=== PATIENT | female | born 1990 | race Hispanic/Latino ===

== ENCOUNTER 2022-08-30 18:18 | Emergency (ER) | payer BC ==
[2022-08-30 18:59] LABS: Absolute Lymphocytes (CBC) 0.4 K/uL (0.7-4.9); Hematocrit 38.8 % (36.0-45.0); Lymphocytes % 7.3 % (15.3-44.8); MCV 89.5 fL (80-100); MPV 10.4 fL (7.6-11.3); RBC Red Blood Cell Count 4.34 M/uL (3.86-4.86)
[2022-08-30 19:15] LABS: Albumin 4.1 g/dL (3.4-5.0); Bilirubin Direct 0.1 mg/dL (0-0.2); Bilirubin Total 0.4 mg/dL (0.2-1.0); Magnesium 2.1 mg/dL (1.8-2.4); Potassium 3.5 mmol/L (3.5-5.1); Protein, Total 8.2 g/dL (6.4-8.2); Troponin High Sensitivity 5.1 pg/mL (<58.9)
--- NOTE | 2022-08-30 19:34 | RAD REPORT ---
EXAM DESCRIPTION: Ant Single View08/30/2022 7:17 pm CLINICAL HISTORY: Syncope COMPARISON: 2007 FINDINGS: The lungs appear clear of acute infiltrate. The heart is normal size IMPRESSION: No acute abnormalities displayed
--- NOTE | 2022-08-30 19:36 | RAD REPORT ---
EXAM DESCRIPTION: CT - Head Brain Wo Cont - 08/30/2022 7:29 pm CLINICAL HISTORY: Syncope COMPARISON: 2013 TECHNIQUE: Computed axial tomography of the head was obtained. IV contrast was not requested. All CT scans are performed using dose optimization technique as appropriate and may include automated exposure control or mA/KV adjustment according to patient size. FINDINGS: An intracranial bleed is not seen . The ventricles are normal in caliber. No significant hypodense areas within the brain visualized No extra-axial fluid collection is noted. Fluid within the sinuses/ mastoids is not seen. IMPRESSION: No acute intracranial abnormality is seen. If patient's symptoms persist MRI of the bra in would be recommended.
[2022-08-30] MEDS ORDERED: OSELTAMIVIR 75 MG CAP ONE (19:52)
[2022-08-30] MEDS ORDERED: NA CHLORIDE 0.9% 1,000 ML ONE (19:52)
--- NOTE | 2022-08-30 19:53 | EDPHYS ---
Physician Documentation [facility] Name: Kerline Arenas Age: 31 yrs Sex: Female : 1990 Arrival Date: 08/30/2022 Time: 18:20 Bed 6 Private MD: ED Physician Hayder Quezada HPI: 08/30 18:32 This 31 yrs old Female presents to ER via Unassigned with complaints of ms3 syncope, cough, headache. 18:32 The patient has experienced syncope, lost consciousness. Onset: The symptoms/episode ms3 began/occurred today. Duration: This was a single episode, that lasted an unknown period of time. Context: occurred at work. Associated injury: The patient did not suffer any apparent associated injury. Associated signs and symptoms: Pertinent positives: cough, headache. Current symptoms: Currently, the patient is not experiencing any symptoms, the patient feels back to baseline, no decreased level of consciousness, no confusion, no dysphasia, no paralysis, no visual changes. 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 - Social history:: Smoking status: Patient denies any tobacco usage or history of. ROS: 18:32 Constitutional: Negative for fever, and chills. Eyes: Negative for injury, pain, ms3 redness, and discharge, Neck: Negative for injury, pain, and swelling, Cardiovascular: Negative for chest pain, and palpitations. Respiratory: Negative for shortness of breath, cough, wheezing, and pleuritic chest pain, Abdomen/GI: Negative for abdominal pain, nausea, vomiting, diarrhea, and constipation, MS/Extremity: Negative for injury and deformity, Skin: Negative for injury, rash, and discoloration. 18:32 Neuro: Positive for headache. 18:32 All other systems are negative. Exam: 18:32 Constitutional: This is a well developed, well nourished patient who is awake, alert, ms3 and in no acute distress. Head/Face: Normocephalic, atraumatic. Neck: Trachea midline, no cervical lymphadenopathy. Supple, full range of motion without nuchal rigidity, or vertebral point tenderness. No Meningismus. Chest/axilla: Normal chest wall appearance and motion. Nontender with no deformity. Cardiovascular: Regular rate and rhythm with a normal S1 and S2. No gallops, murmurs, or rubs. Normal PMI, no JVD. No pulse deficits. Respiratory: Lungs have equal breath sounds bilaterally, clear to auscultation and percussion. No rales, rhonchi or wheezes noted. No increased work of breathing, no retractions or nasal flaring. Abdomen/GI: Soft, non-tender, with normal bowel sounds. No distension or tympany. No guarding or rebound. No evidence of tenderness throughout. Back: No spinal tenderness. No costovertebral tenderness. Full range of motion. Skin: Warm, dry with normal turgor. Normal color with no rashes, no lesions, and no evidence of cellulitis. MS/ Extremity: Pulses equal, no cyanosis. Neurovascular intact. Full, normal range of motion. Neuro: Awake and alert, GCS 15, oriented to person, place, time, and situation. Cranial nerves II-XII grossly intact. Motor strength 5/5 in all extremities. Sensory grossly intact. Cerebellar exam normal. Normal gait. Vital Signs: 18:36 BP 115 / 72; Pulse 115; Resp 16; Temp 97.6; Pulse Ox 100% on R/A; iw MDM: 18:30 Patient medically screened. ms3 18:32 Differential Diagnosis: cardiac arrhythmia, seizure, vasovagal episode. ms3 18:56 Transition of care: After a detail discussion of the patient's case, care is ms3 transferred to Hayder Quezada MD. 19:52 Data reviewed: vital signs, nurses notes, lab test result(s), radiologic studies, CT rn scan, plain films, and as a result, I will discharge patient. Counseling: I had a detailed discussion with the patient and/or guardian regarding: the historical points, exam findings, and any diagnostic results supporting the discharge/admit diagnosis, lab results, radiology results, the need for outpatient follow up, to return to the emergency department if symptoms worsen or persist or if there are any questions or concerns that arise at home. Response to treatment: the patient's symptoms have markedly improved after treatment, and as a result, I will discharge patient. Special discussion: I discussed with the patient/guardian in detail that at this point there is no indication for admission to the hospital. It is understood, however, that if the symptoms persist or worsen the patient needs to return immediately for re-evaluation. 08/30 18:32 Order name: Basic Metabolic Panel; Complete Time: 19:25 ms3 08/30 18:32 Order name: CBC with Diff; Complete Time: 19:25 ms3 08/30 18:32 Order name: Hepatic Function; Complete Time: 19:25 ms3 08/30 18:32 Order name: Magnesium; Complete Time: 19:25 ms3 08/30 18:32 Order name: Troponin High Sensitivity; Complete Time: 19:25 ms3 08/30 18:36 Order name: Flu; Complete Time: 19:25 ms3 08/30 18:32 Order name: CT Head Brain wo Cont; Complete Time: 19:47 ms3 08/30 18:32 Order name: EKG; Complete Time: 18:33 ms3 08/30 18:32 Order name: CXR XRAY; Complete Time: 19:47 ms3 08/30 18:36 Order name: COVID-19 SARS RT PCR (Document "Date of Onset" if Symptomatic); Complete ms3 Time: 19:25 08/30 21:12 Order name: Urine --Ancillary (enter results) vc1 08/30 21:14 Order name: Urine Dipstick-Ancillary EDMS 08/30 18:32 Order name: Cardiac monitoring; Complete Time: 18:50 ms3 08/30 18:32 Order name: EKG - Nurse/Tech; Complete Time: 19:42 ms3 08/30 18:32 Order name: IV Saline Lock; Complete Time: 18:50 ms3 08/30 18:32 Order name: Labs collected and sent; Complete Time: 18:50 ms3 08/30 18:32 Order name: NPO; Complete Time: 18:35 ms3 08/30 18:32 Order name: O2 Per Protocol; Complete Time: 18:50 ms3 08/30 18:32 Order name: O2 Sat Monitoring; Complete Time: 18:35 ms3 08/30 18:32 Order name: Urine Dipstick-Ancillary (obtain specimen); Complete Time: 21:33 ms3 Administered Medications: 19:54 Drug: Tamiflu (oseltamivir) 75 mg Route: PO; aa9 20:15 Follow up: Response: No adverse reaction aa9 19:54 Drug: NS 0.9% 1000 ml Route: IV; Rate: 1000 ml; Site: right antecubital; aa9 21:33 Follow up: Response: No adverse reaction; IV Status: Completed infusion; IV Intake: aa9 1000ml Disposition Summary: 08/30/22 19:52 Discharge Ordered Location: Home rn Problem: new rn Symptoms: have improved rn Condition: Stable rn Diagnosis - Influenza due to identified novel influenza A virus rn - Headache rn - Syncope rn Followup: rn - With: Private Physician - When: As needed - Reason: Recheck today's complaints, Re-evaluation by your physician Discharge Instructions: - Discharge Summary Sheet rn - Fever, Adult rn - Influenza, Adult rn Forms: - Medication Reconciliation Form rn - Thank You Letter rn - Antibiotic rn charge - Prescription Opioid Use rn - Work release form aa9 Prescriptions: - Tamiflu 75 mg Oral Capsule - take 1 tablet by ORAL route every 12 hours for 5 days; 10 tablet; Refills: 0, rn Product Selection Permitted Signatures: Dispatcher [employer] Hayder Castro MD MD rn Hall, Patricia, RN RN Naldo Garcia DO DO ms3 Sita Burrows RN RN aa9
--- NOTE | 2022-08-30 19:53 | ER ---
Nurse's Notes [facility] Name: Kerline Arenas Age: 31 yrs Sex: Female : 1990 Arrival Date: 08/30/2022 Time: 18:20 Bed 6 Private MD: Diagnosis: Influenza due to identified novel influenza A virus;Headache;Syncope Presentation: 08/30 18:31 Chief complaint: Patient states: she blacked out while at work today, she has a iw migraine and also has a numbness sensation to left flank area. Coronavirus screen: At this time, the client does not indicate any symptoms associated with coronavirus-19. Ebola Screen: Patient negative for fever greater than or equal to 101.5 degrees Fahrenheit, and additional compatible Ebola Virus Disease symptoms Patient denies exposure to infectious person. Patient denies travel to an Ebola-affected area in the 21 days before illness onset. No symptoms or risks identified at this time. Initial Sepsis Screen: Does the patient meet any 2 criteria? No. Patient's initial sepsis screen is negative. Does the patient have a suspected source of infection? No. Patient's initial sepsis screen is negative. Risk Assessment: Do you want to hurt yourself or someone else? Patient reports no desire to harm self or others. Onset of symptoms was August 30, 2022. 18:31 Method Of Arrival: Ambulatory iw 18:31 Acuity: LUCILA 3 iw Triage Assessment: 18:55 Headache History: The patient has had previous headaches and this one is similar to ph previous episodes. 21:34 Pain: Also complains of. 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 - Social history:: Smoking status: Patient denies any tobacco usage or history of. Screenin:36 Abuse screen: Denies threats or abuse. Denies injuries from another. Nutritional ph screening: No deficits noted. Tuberculosis screening: No symptoms or risk factors identified. Fall Risk None identified. Assessment: 18:53 General: Appears in no apparent distress. Behavior is calm, cooperative, appropriate ph for age, Denies fever. Pain: Complains of pain in head. Neuro: Level of Consciousness is awake, alert, obeys commands, Oriented to person, place, time, situation, Reports dizziness, headache. Cardiovascular: Capillary refill < 3 seconds in bilateral fingers Patient's skin is warm and dry. Respiratory: Reports cough that is Airway is patent Respiratory effort is even, unlabored. GI: Patient currently denies abdominal pain, nausea, vomiting. EENT: Reports nasal congestion pain when swallowing. Derm: Skin is intact, Skin is pink, warm \T\ dry. Musculoskeletal: Circulation, motion, and sensation intact. Range of motion: intact in all extremities. 19:28 General: Appears in no apparent distress. slender, Behavior is calm, cooperative, aa9 appropriate for age. Neuro: Level of Consciousness is awake, alert, obeys commands, Oriented to person, place, time, situation. Cardiovascular: Patient's skin is warm and dry. Respiratory: Airway is patent Respiratory effort is even, unlabored. Derm: Skin is intact, is healthy with good turgor. 19:58 Reassessment: Discharge pending NS 1000 mL bolus completion. aa9 Vital Signs: 18:36 BP 115 / 72; Pulse 115; Resp 16; Temp 97.6; Pulse Ox 100% on R/A; iw ED Course: 18:20 Patient arrived in ED. as 18:25 Naldo Brink DO is Attending Physician. ms3 18:33 Triage completed. iw 18:33 Arm band placed on. iw 18:34 Cris Martin, RN is Primary Nurse. ph 18:36 Patient has correct armband on for positive identification. Placed in gown. Bed in low ph position. Call light in reach. Side rails up X 1. Client placed on continuous cardiac and pulse oximetry monitoring. NIBP monitoring applied. 18:53 Initial lab(s) drawn, by me, sent to lab. COVID swab sent to lab. Flu and/or RSV swab ph sent to lab. Inserted saline lock: 22 gauge in right antecubital area, using aseptic technique. Blood collected. 18:56 Attending Physician role handed off by Naldo Brink DO ms3 18:56 Hayder Quezada MD is Attending Physician. ms3 19:19 CXR XRAY In Process Unspecified. EDMS 19:31 CT Head Brain wo Cont In Process Unspecified. EDMS 21:34 No provider procedures requiring assistance completed. IV discontinued, intact, aa9 bleeding controlled, No redness/swelling at site. Pressure dressing applied. Administered Medications: 19:54 Drug: Tamiflu (oseltamivir) 75 mg Route: PO; aa9 20:15 Follow up: Response: No adverse reaction aa9 19:54 Drug: NS 0.9% 1000 ml Route: IV; Rate: 1000 ml; Site: right antecubital; aa9 21:33 Follow up: Response: No adverse reaction; IV Status: Completed infusion; IV Intake: aa9 1000ml Medication: 18:55 VIS not applicable for this client. ph Intake: 21:33 IV: 1000ml; Total: 1000ml. aa9 Outcome: 19:52 Discharge ordered by . rn 21:34 Discharged to home ambulatory. aa9 21:34 Condition: stable 21:34 Discharge instructions given to patient, Instructed on discharge instructions, follow up and referral plans. medication usage, Demonstrated understanding of instructions, follow-up care, medications, Prescriptions given X 1. 21:35 Patient left the ED. aa9 Signatures: Dispatcher [employer] Stephanie Rhodes Irene, RN RN Hayder Bocanegra MD MD rn Hall, Patricia, RN RN ph Sims, Marcus, DO DO ms3 Sita Burrows, STEF RN aa9
[2022-08-30 21:13] LABS: Urine Blood 3+ (Negative); Urine Glucose Negative (Negative); Urine Protein Negative (Negative); Urine Specific Gravity 1.015 (1.005-1.030)
[2022-08-30 21:50] VITALS: BP 115/72; TEMP 97.6; O2SAT 100
[2022-08-31 00:35] LABS: Urine Specific Gravity/Preg 1.015 (1.005-1.030)
--- NOTE | 2022-09-01 14:21 | EKG ---
Test Date: 2022-08-30 Test Time: 19:39:10 [place] Estimator: MARY GRACE MEASUREMENT RESULTS: Intervals: Rate: 109 VA: 128 QRSD: 78 QT: 310 QTc: 417 [place]: P: 44 VA: 128 QRS: 79 T: 24 INTERPRETIVE STATEMENTS: Sinus tachycardia Otherwise normal ECG Compared to ECG 09/03/2009 19:51:04 Sinus bradycardia no longer present Electronically Signed On 09-01-22 14:18:05 CDT by Wayne Garibay
== END 2022-08-30 21:35 | disposition home or self-care (01) ==
LOC: ER 18:18
DX: J10.1 Influenza due to other identified influenza virus with other respiratory manifestations (principal); R51.9 Headache, unspecified; Z20.822 Contact with and (suspected) exposure to COVID-19
CPT/HCPCS: 96361; 93005; 85025; 80048; 36415; 83735; 81025; 80076; 81003; 84484; 87804 ×2; 70450; 71045; 96360; 99284; U0003; J7030

== ENCOUNTER 2023-06-20 19:05 | Emergency (ER) | payer BC ==
--- NOTE | 2023-06-20 20:26 | EDPHYS ---
Physician Documentation [facility] Name: Kerline Arenas Age: 32 yrs Sex: Female : 1990 Arrival Date: 06/20/2023 Time: 19:05 Bed 12 Private MD: ED Physician Naldo Brink HPI: 06/20 23:41 This 32 yrs old Female presents to ER via Ambulatory with complaints of Flu kb Symptoms. 23:41 The patient or guardian reports flu symptoms, myalgias. Onset: The symptoms/episode kb began/occurred yesterday. Severity of symptoms: At their worst the symptoms were mild, moderate, in the emergency department the symptoms are unchanged. Modifying factors: The symptoms are alleviated by nothing, the symptoms are aggravated by nothing. Associated signs and symptoms: Pertinent positives: rhinorrhea, sore throat, Pertinent negatives: chest pain, diarrhea, ear ache, fever, nausea, vomiting. The patient has not experienced similar symptoms in the past. The patient has not recently seen a physician. Pt reports sore throat, fatigue, malaise, runny nose and headache yesterday. States she feels better today, but is concerned that she has covid. 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 - Social history:: Smoking status: Patient reports the use of cigarette tobacco products, denies chronic smoking, but will smoke occasionally. ROS: 23:42 Respiratory: Negative for shortness of breath, cough, wheezing, and pleuritic chest kb pain. 23:42 Constitutional: Positive for body aches, fatigue, malaise. 23:42 ENT: Positive for rhinorrhea, sore throat. 23:42 Neuro: Positive for headache. 23:42 All other systems are negative. Exam: 23:42 Constitutional: This is a well developed, well nourished patient who is awake, alert, kb and in no acute distress. Head/Face: Normocephalic, atraumatic. ENT: Moist Mucous membranes Chest/axilla: Normal chest wall appearance and motion. Cardiovascular: Regular rate and rhythm with a normal S1 and S2. No gallops, murmurs, or rubs. No pulse deficits. Respiratory: Respirations even and unlabored. No increased work of breathing. Talking in full sentences Abdomen/GI: Soft, non-tender. No distention Skin: Warm, dry with normal turgor. Normal color. MS/ Extremity: Pulses equal, no cyanosis. Neurovascular intact. Full, normal range of motion. Neuro: Awake and alert, GCS 15, oriented to person, place, time, and situation. Moves all extremities. Normal gait. Vital Signs: 19:13 BP 121 / 73; Pulse 93; Resp 16 S; Temp 97.9(TE); Pulse Ox 99% on R/A; Weight 56.7 kg aa5 (R); Height 4 ft. 11 in. (R); 20:46 BP 122 / 74; Pulse 88; Resp 16; Pulse Ox 100% on R/A; mb9 19:13 Body Mass Index 25.25 (56.70 kg, 149.86 cm) aa5 MDM: 19:11 Patient medically screened. kb 23:43 Differential Diagnosis: Other flu, covid, strep, uri. Data reviewed: vital signs, kb nurses notes. Counseling: I had a detailed discussion with the patient and/or guardian regarding the historical points, exam findings, and any diagnostic results supporting the discharge/admit diagnosis, lab results, the need for outpatient follow up, a family practitioner, to return to the emergency department if symptoms worsen or persist or if there are any questions or concerns that arise at home. 06/20 19:18 Order name: Flu; Complete Time: 20:06 06/20 19:18 Order name: SARS-COV-2 RT PCR; Complete Time: 20:25 06/20 19:18 Order name: Strep 06/20 19:41 Order name: Throat Culture EDMS Administered Medications: No medications were administered Disposition Summary: 06/20/23 20:26 Discharge Ordered Location: Home Condition: Stable kb Diagnosis - SARS-associated coronavirus as the cause of diseases classified elsewhere kb Followup: kb - With: Emergency Department - When: As needed - Reason: Worsening of condition Followup: kb - With: Private Physician - When: 2 - 3 days - Reason: Recheck today's complaints, Continuance of care, Re-evaluation by your physician Discharge Instructions: - Discharge Summary Sheet kb - COVID-19 kb - Viral Illness, Adult kb Forms: - Medication Reconciliation Form kb - Thank You Letter kb - Antibiotic Education kb - Prescription Opioid Use kb - Patient Portal Instructions kb - Leadership Thank You Letter kb - Work release form mb9 Signatures: Dispatcher [employer] Silva Calderon, JIMBOC Denia Tate RN RN aa5 Corrections: (The following items were deleted from the chart) 19:14 19:14 Allergies: Aspirin; aa5 aa5
--- NOTE | 2023-06-20 20:26 | ER ---
Nurse's Notes [facility] Name: Kerline Arenas Age: 32 yrs Sex: Female : 1990 Arrival Date: 06/20/2023 Time: 19:05 Bed 12 Private MD: Diagnosis: SARS-associated coronavirus as the cause of diseases classified elsewhere Presentation: 06/20 19:13 Chief complaint: Patient states: runny nose, sore throat, and headache yesterday. Pt aa5 sates "I feel better today, I just have a sore throat". Coronavirus screen: headache, runny nose, sore throat. Ebola Screen: Patient denies travel to an Ebola-affected area in the 21 days before illness onset. Risk Assessment: Do you want to hurt yourself or someone else? Patient reports no desire to harm self or others. Onset of symptoms was May 2023. 19:13 Acuity: LUCILA 4 aa5 19:13 Method Of Arrival: Ambulatory aa5 19:13 Initial Sepsis Screen: Does the patient meet any 2 criteria? HR > 90 bpm. Does the aa5 patient have a suspected source of infection? No. Patient's initial sepsis screen is negative. 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 - Social history:: Smoking status: Patient reports the use of cigarette tobacco products, denies chronic smoking, but will smoke occasionally. Assessment: 20:43 General: Appears in no apparent distress. Behavior is cooperative. Pain: Denies pain. mb9 Neuro: Modi Agitation-Sedation Scale (RASS): 0 - Alert and Calm. Cardiovascular: Patient's skin is warm and dry. Respiratory: Reports cough that is Airway is patent Respiratory effort is even, unlabored, Respiratory pattern is regular, symmetrical, Breath sounds are clear bilaterally. GI: Abdomen is flat, non-distended, Bowel sounds present X 4 quads. Abd is soft and non tender X 4 quads. : No signs and/or symptoms were reported regarding the genitourinary system. Derm: Skin is pink, warm \\T\\ dry. Musculoskeletal: Range of motion: intact in all extremities. Vital Signs: 19:13 BP 121 / 73; Pulse 93; Resp 16 S; Temp 97.9(TE); Pulse Ox 99% on R/A; Weight 56.7 kg aa5 (R); Height 4 ft. 11 in. (R); 20:46 BP 122 / 74; Pulse 88; Resp 16; Pulse Ox 100% on R/A; mb9 19:13 Body Mass Index 25.25 (56.70 kg, 149.86 cm) aa5 ED Course: 19:09 Patient arrived in ED. mr 19:11 [facility] Chandler [facility] kb 19:11 Naldo Brink DO is Attending Physician. kb 19:12 Arm band placed on. aa5 19:14 Triage completed. aa5 20:46 No provider procedures requiring assistance completed. Patient did not have IV access mb9 during this emergency room visit. Administered Medications: No medications were administered Outcome: 20:26 Discharge ordered by MD. kb 20:46 Discharged to home ambulatory. mb9 20:46 Condition: stable 20:46 Discharge instructions given to patient, Instructed on discharge instructions, follow up and referral plans. Demonstrated understanding of instructions, follow-up care. 20:46 Patient left the ED. mb9 Signatures: Silva Chandler FNP-C FNP-Ckb Rivera, Mary mr MorganDenia RN RN aa5 Brenda Phelps RN RN mb9 Corrections: (The following items were deleted from the chart) 19:14 19:14 Allergies: Aspirin; aa5 aa5
[2023-06-20 21:01] VITALS: TEMP 97.9
[2023-06-20 21:02] VITALS: BP 122/74; O2SAT 100
== END 2023-06-20 20:46 | disposition home or self-care (01) ==
LOC: ER 19:05
DX: U07.1 COVID-19 (principal); F17.210 Nicotine dependence, cigarettes, uncomplicated
CPT/HCPCS: 87070; 87081; 87635; 87804; 99282